=== PATIENT | female | born 2000 | race Caucasian/White ===

== ENCOUNTER 2018-01-14 02:43 | Emergency (ER) | payer OTHER ==
--- NOTE | 2018-01-14 08:06 | ED ---
Sandeep Latham Nilda, scribed for Alexys Hahn MD on 01/14/18 at 0701 . Substance Abuse/Use - HPI Summary HPI Summary: LVL 5 Caveat: Hx and PE are limited due to alcohol intoxication. This patient is a 17 year old F BIBA as a 2208 with a chief complaint of severe constant alcohol intoxication a few hours ago. Symptoms aggravated and alleviated by nothing. - History Of Current Complaint Chief Complaint: EDSubstanceAbuse Stated Complaint: 2208 Time Seen by Provider: 01/14/18 03:50 Hx Obtained From: Patient Onset/Duration of Drug/ETOH Abuse: Hours Overdose Characteristics: Oral Timing Of Abuse: Binge Use Severity Currently: Severe Character: Stuporous Aggravating Factor(s): Nothing Alleviating Factor(s): Nothing PMH/Surg Hx/FS Hx/Imm Hx Sensory History: Denies: Hx Legally Blind EENT History: Denies: Hx Deafness - Immunization History Date of Tetanus Vaccine: assumed utd - college student Date of Influenza Vaccine: unk Immunizations Up to Date: Unable to Obtain/Confirm Infectious Disease History: Unable to Obtain/Confirm Infectious Disease History: Denies: Traveled Outside the [place] in Last 30 Days - Family History Known Family History: Positive: Unknown - Hx limited due to ETOH intoxication - Social History Alcohol Use: Occasionally Substance Use Type: Reports: None Smoking Status (MU): Unknown if Ever Smoked Review of Systems - ROS Summary Review of Systems Summary: LVL 5 Caveat: Hx and PE are limited due to alcohol intoxication. Negative: Shortness Of Breath Neurological: Other - alcohol intoxication All Other Systems Reviewed And Are Negative: No Physical Exam - Summary Physical Exam Summary: General: well-appearing, no pain distress Skin: warm, color reflects adequate perfusion, dry Head: normal Eyes: EOMI, SIM ENT: normal Neck: supple, nontender Respiratory: CTA, breath sounds present Cardiovascular: RRR Abdomen: soft, nontender Bowel sounds: present Musculoskeletal: Moves all extremities, no signs of trauma Psychological: Stuporous, responds to voice and gentle stimulation Triage Information Reviewed: Yes Vital Signs On Initial Exam: Initial Vitals Temp Pulse Resp BP Pulse Ox 97.3 F 109 22 112/75 98 01/14/18 02:45 01/14/18 02:45 01/14/18 02:45 01/14/18 02:45 01/14/18 02:45 Vital Signs Reviewed: Yes Completion Of Physical Exam Limited Due To: Level 5 - LVL 5 Caveat: Hx and PE are limited due to alcohol intoxication. Diagnostics - Vital Signs Vital Signs Temp Pulse Resp BP Pulse Ox 01/14/18 02:45 97.3 F 109 22 112/75 98 - Laboratory Lab Results: Lab Results 01/14/18 Range/Units 03:55 Serum Alcohol 264 H (<10) mg/dL Lab Statement: Any lab studies that have been ordered have been reviewed, and results considered in the medical decision making process. Course/Dx - Course Assessment/Plan: LVL 5 Caveat: Hx and PE are limited due to alcohol intoxication. This patient is a 17 year old F BIBA as a 2209 with a chief complaint of severe constant alcohol intoxication a few hours ago. Symptoms aggravated and alleviated by nothing. - Diagnoses Provider Diagnoses: Alcohol intoxication Discharge - Discharge Plan Condition: Stable Disposition: HOME Patient Education Materials: Alcohol Intoxication (ED) Referrals: [facility] [Outside] Additional Instructions: FOLLOW UP WITH YOUR DOCTOR. RETURN TO THE EMERGENCY DEPARTMENT FOR ANY WORSENING OF YOUR CONDITION OR QUESTIONS OR CONCERNS. The documentation as recorded by the Sandeep dawn Nilda accurately reflects the service I personally performed and the decisions made by me, Alexys Hahn MD.
[2018-01-14 11:05] VITALS: BP 00/0
== END 2018-01-14 11:02 | disposition home or self-care (01) ==
LOC: ED 02:43
DX: F10.129 Alcohol abuse with intoxication, unspecified (principal); Y90.8 Blood alcohol level of 240 mg/100 ml or more
CPT/HCPCS: 36415; 80320; 99282; G0480